=== PATIENT | female | born 1960 | race Caucasian/White ===

== ENCOUNTER 2021-10-29 05:40 | Day surgery (SDC) | payer MEDICAID ==
[~2021-10-29] VITALS: Ht 170.2 cm; Wt 115.5 kg
[2021-10-29 06:30] LABS: COVID AG,FIA SOURCE NASOPHARYNGEAL
[2021-10-29] MEDS ORDERED: SODIUM CHLORIDE 0.9% 1,000 ML ONE (06:56)
[2021-10-29] MEDS ORDERED: MONT-35 PO (07:22)
[2021-10-29] MEDS ORDERED: METF-1185 PO (07:22)
[2021-10-29] MEDS ORDERED: LEVO50 PO (07:22)
[2021-10-29] MEDS ORDERED: PANT-31 PO (07:22)
[2021-10-29 07:26] LABS: GLUCOMETER DEV NAME(LOC) SDS.; GLUCOSE,POINT OF CARE 112 MG/DL (70-110)
[2021-10-29] MEDS ORDERED: FLUT1BLS10 IH (07:29)
[2021-10-29] MEDS ORDERED: SODIUM CHLORIDE 0.9% 1,000 ML IV ONE (07:30)
[2021-10-29] MEDS ORDERED: GABA-1181 PO (07:30)
[2021-10-29] MEDS ORDERED: CHOL25TA4 PO (07:31)
[2021-10-29] MEDS ORDERED: ESCI-8 PO (07:31)
[2021-10-29] MEDS ORDERED: HYDR200T38 PO (07:33)
[2021-10-29] MEDS ORDERED: ACET-3385 PO (07:34)
[2021-10-29] MEDS ORDERED: METH2.5 PO (07:36)
[2021-10-29] MEDS ORDERED: AMIT25TA10 PO (07:37)
[2021-10-29] MEDS ORDERED: TRAZ-257 PO (07:40)
[2021-10-29] MEDS ORDERED: FentaNYL CITRATE PF 100 MCG/2 ML VIAL ONE (08:19)
[2021-10-29] MEDS ORDERED: MIDAZOLAM HCL 5 MG/ML VIAL ONE (08:19)
[2021-10-29] MEDS ORDERED: SODIUM CHLORIDE 0.9% 10 ML ONE (08:29)
[2021-10-29] MEDS ORDERED: MethylPREDNISolone SOD SUCC 125 MG/2 ML VIAL IVP ONE (09:15)
[2021-10-29] MEDS ORDERED: MethylPREDNISolone SOD SUCC 125 MG/2 ML VIAL ONE (09:33)
[2021-10-29] MEDS ORDERED: FOLI-130 PO (12:18)
[2021-10-29] MEDS ORDERED: LIDO700A30 TD (12:18)
[2021-10-29] MEDS ORDERED: TIOT4MIS2 IH (12:18)
[2021-10-29] MEDS ORDERED: FLUT16H NASAL (12:18)
[2021-10-29] MEDS ORDERED: CYAN-53 PO (12:18)
[2021-10-29] MEDS ORDERED: BACL10TA PO (12:18)
[2021-10-29] MEDS ORDERED: ALBU8HFA IH (12:18)
[2021-10-29] MEDS ORDERED: OXYGEN THERAPY IH SCH (20:00)
== END 2021-10-29 11:35 | disposition home or self-care (01) ==
LOC: SURGERY 05:40
PROVIDERS: ATTEND Internal Medicine Critical Care Medicine
DX: J38.4 Edema of larynx (principal); B37.0 Candidal stomatitis; E11.9 Type 2 diabetes mellitus without complications; J43.9 Emphysema, unspecified; Z79.899 Other long term (current) drug therapy; Z98.890 Other specified postprocedural states; Z90.49 Acquired absence of other specified parts of digestive tract; Z91.018 Allergy to other foods; Z91.012 Allergy to eggs; Z91.013 Allergy to seafood; Z87.01 Personal history of pneumonia (recurrent)
CPT/HCPCS: 31623; 88112; 82962; 87206; 87101; 87220; 87070; 88305; 88312; 31624; 71045; 87015; 87426; J3010; J2930; J2250; J7030; C9803

== ENCOUNTER 2024-05-10 06:15 | Day surgery (SDC) | payer MEDICAID ==
[~2024-05-10] VITALS: Ht 170.2 cm; Wt 120.0 kg
[~2024-05-10 06:15] MED LIST: ACET-3385 PO; ALBU18HF12 IH; AMIT25TA10 PO; BACL10TA PO; CHOL25TA4 PO; CYAN-53 PO; ESCI-8 PO; FLUT16SP NASAL; FLUT1BLS10 IH; FOLI-130 PO; GABA-1181 PO; HYDR200T38 PO; LEVO50 PO; LIDO700A30 TD; METF-1185 PO; METH2.5T7 PO; MONT-35 PO; PANT-31 PO; TIOT4MIS2 IH; TRAZ-257 PO
[2024-05-10] MEDS ORDERED: BENZOCAINE 20% 50 MCG/SPRAY 57 GM TP ONE (06:16)
[2024-05-10] MEDS ORDERED: LIDOCAINE 2% 11 ML JELLY TP ONE (06:16)
[2024-05-10] MEDS ORDERED: ALBUTEROL SULFATE 2.5 MG/0.5 ML NEB SOLUTION NEB ONE (06:16)
[2024-05-10] MEDS ORDERED: LIDOCAINE 4% 50 ML SOLUTION TP ONE (06:16)
[2024-05-10] MEDS: SODIUM CHLORIDE 0.9% 1,000 ML IV ONE (07:42)
[2024-05-10 08:00] LABS: GLUCOMETER DEV NAME(LOC) SDS.; GLUCOSE,POINT OF CARE 108 MG/DL (70-110)
[2024-05-10] MEDS ORDERED: FentaNYL CITRATE PF 100 MCG/2 ML VIAL ONE (08:12)
[2024-05-10] MEDS ORDERED: MIDAZOLAM HCL 2 MG/2 ML VIAL ONE (08:12)
[2024-05-10 09:38] VITALS: PULSE 101; RESP 18; O2SAT 95
[2024-05-10] MEDS ORDERED: MethylPREDNISolone SOD SUCC 125 MG/2 ML VIAL ONE (09:54)
[2024-05-10] MEDS: MethylPREDNISolone SOD SUCC 125 MG/2 ML VIAL IVP ONE (09:56)
== END 2024-05-10 11:20 | disposition home or self-care (01) ==
LOC: SURGERY 06:15
PROVIDERS: ATTEND Internal Medicine Critical Care Medicine
DX: R05.3 Chronic cough (principal); J38.4 Edema of larynx; B37.0 Candidal stomatitis; E11.9 Type 2 diabetes mellitus without complications; Z79.899 Other long term (current) drug therapy; Z91.018 Allergy to other foods; Z98.890 Other specified postprocedural states; Z90.49 Acquired absence of other specified parts of digestive tract
CPT/HCPCS: 31623; 82962; 87206; 87101; 87220; 87070; 88108; 31624; 94640; 71045; 87015; J3010; J2250; J2919; J7613; Z7610